=== PATIENT | female | born 1965 | race Caucasian/White ===

== ENCOUNTER → 2016-09-28 | Outpatient (CLI) | payer OTHER ==
--- NOTE | 2016-09-28 15:21 | RADIOLOGY REPORT PS360 ---
CT SINUS (MAX-FACIAL W/O CONT) CLINICAL INDICATION: ACUTE NON-RECURRENT MAXILLARY SINUSITIS ORDERING PHYSICIAN: Marcella Capps MD PATIENT AGE: 51 years COMPARISON: None TECHNIQUE:Axial, sagittal, and coronal images are generated and reviewed without contrast COMPARISON: None FINDINGS: The frontal, ethmoid, and maxillary sinuses are unremarkable. There is some mild foamy appearing mucous in the sphenoid sinuses. There is opacification of the left mastoid sinus. The left middle ear does appear aerated. The right mastoid sinus has an unremarkable appearance. The ostiomeatal units are patent. Mild rightward nasal septal deviation. The TMJs are unremarkable. IMPRESSION: 1. Left mastoid sinus opacification. 2. Mild foamy-appearing mucus in the sphenoid sinuses. 3. No paranasal sinus air-fluid level. 4. Mild rightward nasal septal deviation
== END ==
LOC: RAD 13:52
DX: J01.00 Acute maxillary sinusitis, unspecified (principal)